=== PATIENT | female | born 1970 | race Asian ===

== ENCOUNTER 2022-02-16 08:29 | Emergency (ER) | payer MEDICAID ==
[~2022-02-16] VITALS: Ht 149.9 cm; Wt 57.3 kg
[2022-02-16] MEDS ORDERED: ATOR10TA PO (08:39)
[2022-02-16] MEDS ORDERED: ENAL2.5T16 PO (08:39)
[2022-02-16] MEDS ORDERED: AMLO10TA55 PO (08:39)
[2022-02-16 09:01] LABS: COVID AG,FIA SOURCE NASAL SWAB
[2022-02-16 09:14] VITALS: BP 152/102
[2022-02-16 09:28] LABS: INFLUENZA TYPE A NEGATIVE FOR TYPE A (NEGATIVE); INFLUENZA TYPE B NEGATIVE FOR TYPE B (NEGATIVE)
[2022-02-16] MEDS ORDERED: NIRM1TAB PO (10:11)
== END 2022-02-16 10:24 | disposition home or self-care (01) ==
LOC: EMS 08:48
DX: U07.1 COVID-19 (principal); F10.20 Alcohol dependence, uncomplicated; I10 Essential (primary) hypertension
CPT/HCPCS: 87804; 99283